=== PATIENT | male | born 1950 | race Caucasian/White ===

== ENCOUNTER 2019-10-06 13:37 | Outpatient (CLI) | payer OTHER ==
--- NOTE | 2019-10-06 14:32 | ULT ---
SCROTAL ULTRASOUND: INDICATION: History of right-sided hydrocele. TECHNIQUE: Mixon scale, color flow, with spectral Doppler images were obtained of the scrotum. FINDINGS: There is a large right-sided hydrocele. The right testicle measures 5.1 x 2.3 x 2.2 cm. There is a small left appendix testis present. Visualized right epididymis is normal-appearing. There is negar l flow to the right testicle. The left testicle measured 4.9 x 2.5 x 2.1 cm. There is normal flow to the left testicle. No intrat esticular mass is evident. There are 2 large cystic lesions seen along the left epididymal head with the larger measuring 2.5 x 3.1 x 1.3 cm suspicious for a large left-sided spermatocele. The additio nal epididymal head cyst measures 2.7 x 1.8 cm. IMPRESSION: 1. Large right-sided hydrocele. 2. No intratesticular mass or torsion demonstrated. 3. Two prominent left epididymal head cysts. POS: BH
== END 2019-10-06 13:38 | disposition home or self-care (01) ==
LOC: BICULT 13:37
PROVIDERS: ATTEND Urology
DX: N43.3 Hydrocele, unspecified (principal); N50.3 Cyst of epididymis
CPT/HCPCS: 76870; 93976

== ENCOUNTER 2019-12-30 06:03 | Day surgery (SDC) | payer OTHER ==
[2019-12-28 12:54] VITALS: BMI 25.7
[2019-12-30] MEDS ORDERED: Fentanyl 100 MCG/2 ML VIAL ONE (06:58)
[2019-12-30] MEDS ORDERED: Vancomycin 1 GM/200 ML BAG ONE (07:18)
--- NOTE | 2019-12-30 10:58 | OP ---
DATE OF PROCEDURE: 12/30/2019 SERVICE: Urology. PREOPERATIVE DIAGNOSIS: Right hydrocele. POSTOPERATIVE DIAGNOSIS: Right hydrocele. PROCEDURE PERFORMED: Right hydrocelectomy in the Lord's fashion. INDICATIONS FOR PROCEDURE: Mr. Scherer is a 69-year-old white male with a history of a right hydrocele. This was bothering him significantly and he wanted it corrected. We discussed hydrocelectomy with risks and benefits, and he has agreed to proceed forward. DESCRIPTION OF PROCEDURE: After identification of armband and verification of consent, the patient was brought back to the operating room where he underwent general anesthesia with an LMA. He was left in the supine position and prepped and draped in usual sterile fashion. After appropriate time-out, a horizontal incision was made on Gail's lines along the scrotum with a 15 blade to start incision. Dissection was carried down sharply and with Bovie electrocautery until the tunica vaginalis was encountered and the hydrocele could be seen. Dissection of the hydrocele sac was performed until the entire hydrocele could be delivered outside the scrotum. The surrounding tissues were dissociated and pulled back until the cord could be seen and the hydrocele noted. There was no evidence of communication into the inguinal canal. The hydrocele was opened anteriorly with the release of approximately 400 to 500 mL of straw-colored fluid. Once the hydrocele was completely evacuated, the hydrocele sac was opened in its entirety. The hydrocele sac was extremely thin, making a suitable for a Lord's hydrocelectomy rather than a Jaboulay procedure. Therefore, the hydrocele was plicated up towards the testicle, taking great care not to incorporate the epididymis in the process. Meticulous hemostasis was performed prior to the plication to ensure that the edges were completely cauterized and free of bleeding. After the plication, the flaps were marsupialized posteriorly at 2 points to prevent any kind of fluid accumulation. The inside of the scrotum and the testicle were then irrigated with normal saline, and then all the fluid evacuated. Meticulous hemostasis was then performed on the inside of the scrotum and along the skin edges or any bleeding that had been encountered. A small incision was made on the inferior aspect of the scrotum with the cutting current of the cautery pen to allow for a #10 HERNANDEZ drain to be brought in. The HERNANDEZ was trimmed down to size and then sutured in place with a 3-0 nylon. The testicle was then delivered back into the scrotum. The dartos and spermatic fascia were closed with a 2-0 Vicryl, and the skin was closed with a 4-0 Monocryl. The HERNANDEZ was hooked to bulb suction. The patient would not tolerate a Radha drain secondary to his latex allergy. Dermabond was applied to the incision. A cord block was performed along with the skin incision block for a total of 13 mL of 0.25% Marcaine plain used. After the Dermabond was dried, scrotal fluffs were applied along with a jockstrap. The patient was then awakened, taken to PACU for recovery in stable condition. COMPLICATIONS: None. ESTIMATED BLOOD LOSS: Minimal. RETAINED TUBES AND DRAINS: #10 HERNANDEZ drain. SPECIMENS: None. DISPOSITION: The patient will be discharged home and follow up with me in approximately 1 week for drain removal. We will handle his postop care thereafter. Job ID: [id number]
[2019-12-30] MEDS ORDERED: PROPOFOL 200 MG/20 ML VIAL ONE (12:00)
[2019-12-30] MEDS ORDERED: Ondansetron PF 4 MG/2 ML Vial ONE (12:00)
[2019-12-30] MEDS ORDERED: Lidocaine 1% PF 5 ML VIAL ONE (12:00)
[2019-12-30] MEDS ORDERED: Ketorolac Tromethamine 30 MG/ML VIAL ONE (12:00)
[2019-12-30] MEDS ORDERED: EPHEDRINE 25 MG/5 ML SYRINGE ONE (12:00)
[2019-12-30] MEDS ORDERED: Dexamethasone 20 MG/5 ML VIAL ONE (12:00)
== END 2019-12-30 11:10 | disposition home or self-care (01) ==
LOC: SDC 06:03
PROVIDERS: ATTEND Urology
PROC: 0VB60ZZ Excision of Right Tunica Vaginalis, Open Approach (ICD-10-PCS; principal; 2019-12-30)
DX: N43.3 Hydrocele, unspecified (principal); E78.5 Hyperlipidemia, unspecified; Z88.0 Allergy status to penicillin; Z91.040 Latex allergy status
CPT/HCPCS: J1100; J1885; J2405; J2704; J3010; J3370